=== PATIENT | female | born 1970 | race Caucasian/White ===

== ENCOUNTER 2017-08-15 09:28 | Day surgery (SDC) | payer OTHER ==
[~2017-08-15 09:28] MED LIST: CEFAZOLIN 1 GM INJ
[2017-08-15] MEDS ORDERED: PROPOFOL 60 ML (10:35)
[2017-08-15] MEDS ORDERED: ONDANSETRON 4 MG INJ (10:35)
[2017-08-15] MEDS ORDERED: FAMOTIDINE 20 MG INJ (10:35)
[2017-08-15] MEDS ORDERED: FENTAnyl 50 MCG/ML VIAL (10:35)
[2017-08-15] MEDS ORDERED: MIDAZOLAM 1 MG/ML 2 ML INJ (10:35)
[2017-08-15] MEDS ORDERED: LIDOCAINE 2% (SDV) 5 ML INJ (10:35)
[2017-08-15] MEDS ORDERED: DEXAMETHASONE 4 MG/ML 1 ML INJ (10:35)
[2017-08-15] MEDS ORDERED: KETOROLAC 30 MG INJ (10:35)
[2017-08-15] MEDS ORDERED: POLYMYXIN/BACITRACIN 1L IRRIG (11:23)
[2017-08-15] MEDS ORDERED: ONDANSETRON 4 MG INJ IV (13:00)
[2017-08-15] MEDS ORDERED: MEPERIDINE 25 MG INJ IV (13:00)
[2017-08-15] MEDS ORDERED: FENTAnyl 50 MCG/ML VIAL IV (13:00)
[2017-08-15] MEDS ORDERED: morphine (1 MG/ML) 10ML SYRINGE IV (13:00)
[2017-08-15] MEDS ORDERED: LABETALOL HCL 20MG INJ IV (13:00)
[2017-08-15] MEDS ORDERED: HYDROmorphONE (0.2 MG/ML) 10ML SYG IV ×2 (13:00→13:04)
[2017-08-15] MEDS ORDERED: KETOROLAC 30 MG INJ IV (13:00)
[2017-08-15] MEDS: BUPIVACAINE 0.5% (SDV) 30 ML INJ (13:04)
[2017-08-15] MEDS: POVIDONE IODINE 10% 28.4 GM OINT (13:04)
[2017-08-15] MEDS: HYDROmorphONE (0.2 MG/ML) 10ML SYG IV (13:44)
== END 2017-08-15 14:44 | disposition home or self-care (01) ==
LOC: SDS 09:28
DX: M20.21 Hallux rigidus, right foot (principal)
CPT/HCPCS: 28291; 88304; 88311

== ENCOUNTER 2018-10-07 07:49 | Day surgery (SDC) | payer OTHER ==
[2018-10-07] MEDS ORDERED: MIDAZOLAM 1 MG/ML 2 ML INJ (08:28)
[2018-10-07] MEDS ORDERED: ROPIVACAINE 0.5 % 30 ML VIAL (08:28)
[2018-10-07] MEDS ORDERED: PROPOFOL 20 ML (08:28)
[2018-10-07] MEDS ORDERED: CEFAZOLIN 1 GM INJ (08:28)
[2018-10-07] MEDS ORDERED: FENTAnyl 50 MCG/ML VIAL (08:28)
[2018-10-07] MEDS ORDERED: ROCURONIUM 50 MG INJ (08:28)
[2018-10-07] MEDS: POLYMYXIN/BACITRACIN 1L IRRIG IRR (10:00)
[2018-10-07] MEDS: LIDOCAINE 1% (MPF) 30 ML INJ (10:00)
[2018-10-07] MEDS ORDERED: METOCLOPRAMIDE 10 MG INJ (10:17)
[2018-10-07] MEDS ORDERED: ONDANSETRON 4 MG INJ (10:17)
[2018-10-07] MEDS ORDERED: DEXAMETHASONE 4 MG/ML 5 ML INJ (10:17)
[2018-10-07] MEDS ORDERED: KETOROLAC 30 MG INJ (10:17)
[2018-10-07] MEDS ORDERED: HYDROmorphONE 1 MG/5 ML IV SYRINGE IV ×2 (11:07→11:30)
[2018-10-07] MEDS ORDERED: POLYMYXIN/BACITRACIN 1L IRRIG (11:11)
[2018-10-07] MEDS: HYDROmorphONE 1 MG/5 ML IV SYRINGE IV ×2 (11:25→11:31)
[2018-10-07] MEDS ORDERED: ONDANSETRON 4 MG INJ IV (11:30)
[2018-10-07] MEDS: KETOROLAC 30 MG INJ IV (11:30)
[2018-10-07] MEDS ORDERED: EPHEDrine SULFATE 50 MG/5 ML SYG IV (11:30)
[2018-10-07] MEDS: FENTAnyl 50 MCG/ML VIAL IV ×2 (11:30→11:39)
[2018-10-07] MEDS ORDERED: OXYCODONE/ACETAMINOPHEN (5/325) TAB PO ×2 (11:30)
[2018-10-07] MEDS ORDERED: FENTAnyl 50 MCG/ML VIAL IV ×2 (11:30)
[2018-10-07] MEDS ORDERED: LABETALOL HCL 20MG INJ IV (11:30)
[2018-10-07] MEDS: METOCLOPRAMIDE 10 MG INJ IV (11:31)
== END 2018-10-07 13:27 | disposition home or self-care (01) ==
LOC: SDS 07:49
DX: T84.84XD Pain due to internal orthopedic prosthetic devices, implants and grafts, subsequent encounter (principal); Y79.3 Surgical instruments, materials and orthopedic devices (including sutures) associated with adverse incidents; M20.21 Hallux rigidus, right foot
CPT/HCPCS: 28291; 73630; 88300